=== PATIENT | female | born 1940 | race Asian ===

== ENCOUNTER 2020-08-20 21:41 | Emergency (ER) | payer OTHER ==
[2020-08-20 21:45] VITALS: BP 180/90
[2020-08-21 00:20] LABS: Basophils # (auto) 0.1 10 ^3/uL (0-0.2); Eosinophils # (auto) 0.2 10 ^3/uL (0-0.8); Eosinophils % (auto) 3.9 % (0.0-7.0); Hematocrit 40.1 % (36.0-46.0); Hemoglobin 13.3 g/dL (12.2-16.2); Lymphocytes # (auto) 1.4 10 ^3/uL (0.4-5.4); Mean Corpuscular Hemoglobin 29.3 pg (28.0-32.0); Mean Corpuscular Hgb Conc. 33.2 g/dL (32.0-36.0); Mean Corpuscular Volume 88.3 fL (80.0-100.0); Monocytes # (auto) 0.5 10 ^3/uL (0-1.3); Neutrophils # (auto) 4.1 10 ^3/uL (1.6-8.6); Neutrophils % (auto) 64.1 % (37.0-80.0); Platelet Count (auto) 223 10^3/uL (140-450); Red Blood Cells 4.54 10^6/uL (4.0-5.20); Red Cell Distribution Width 13.2 % (11.8-14.3); White Blood Cell 6.4 10^3/uL (4.4-10.8)
[2020-08-21 00:38] LABS: Alanine Aminotransferase 19 U/L (13-56); Albumin 3.5 g/dL (3.4-5.0); Anion Gap 6 (5-15); Aspartate Aminotransferase 24 U/L (15-37); BUN/Creatinine Ratio 19.7; Blood Urea Nitrogen 12 mg/dL (7-18); Calcium 8.7 mg/dL (8.5-10.1); Carbon Dioxide 29 mmol/L (21-32); Chloride 103 mmol/L (98-107); GFR African American 122 mL/min; GFR Non-African American 101 mL/min; Glucose 116 mg/dL (74-106); Lipase 208 U/L (73-393); Magnesium 1.8 mg/dL (1.6-2.6); Sodium 138 mmol/L (136-145)
[2020-08-21 00:43] LABS: Alkaline Phosphatase 65 U/L (45-117); Bilirubin, Total 0.9 mg/dL (0.2-1.0); Total Protein 7.9 g/dL (6.4-8.2)
[2020-08-21 01:52] LABS: Blood Alcohol < 3.0 mg/dL (0-5)
[2020-08-21 01:54] LABS: Potassium 2.9 mmol/L (3.5-5.1)
[2020-08-21] MEDS ORDERED: POTASSIUM EFFERVESENT TAB 25 MEQ PO ONE (02:30)
[2020-08-21 03:19] LABS: INR 1.03 (0.9-1.15)
== END 2020-08-21 02:50 | disposition home or self-care (01) ==
LOC: EDBD 21:41 → ER 21:54
DX: R41.82 Altered mental status, unspecified (principal); E87.6 Hypokalemia; R07.9 Chest pain, unspecified
CPT/HCPCS: 36415; 70450; 71045; 80053; 80320; 83605; 83690; 83735; 84484; 85025; 85610

== ENCOUNTER → 2020-08-27 | Emergency (ER) | payer OTHER ==
[~2020-08-27] VITALS: Ht 154.9 cm; Wt 52.2 kg
[2020-08-27 13:23] VITALS: BP 119/83
== END | disposition left against medical advice (07) ==
LOC: ER 13:13
DX: Z76.0 Encounter for issue of repeat prescription (principal); Z53.21 Procedure and treatment not carried out due to patient leaving prior to being seen by health care provider

== ENCOUNTER 2021-08-19 12:32 | Emergency (ER) | payer OTHER ==
[~2021-08-19] VITALS: Ht 152.4 cm; Wt 47.2 kg
[2021-08-19 12:32] VITALS: BP 170/68
== END 2021-08-19 17:00 | disposition left against medical advice (07) ==
LOC: ER 12:32
DX: Z76.0 Encounter for issue of repeat prescription (principal); Z53.21 Procedure and treatment not carried out due to patient leaving prior to being seen by health care provider